=== PATIENT | male | born 1975 ===

== ENCOUNTER 2019-01-13 02:55 | Emergency (ER) | payer OTHER ==
[~2019-01-13] VITALS: Ht 182.9 cm; Wt 145.1 kg
[~2019-01-13 02:55] MED LIST: CIPROFLOXACIN750 MG
[2019-01-13] MEDS ORDERED: TAMS0.4C PO (10:01)
[2019-01-13] MEDS ORDERED: KETO10TA2 PO (10:01)
== END 2019-01-13 10:21 | disposition home or self-care (01) ==
LOC: ER 02:55
DX: R10.12 Left upper quadrant pain (principal)

== ENCOUNTER 2023-06-01 09:30 | Emergency (ER) | payer OTHER ==
[~2023-06-01] VITALS: Ht 182.9 cm; Wt 129.3 kg
[~2023-06-01 09:30] MED LIST changes: +KETO10TA2 PO; +TAMS0.4C PO
[2023-06-01] MEDS ORDERED: HYDROCHLOROTH12.5 MG PO (10:11)
[2023-06-01] MEDS ORDERED: GLUMETZA1000 MG (10:11)
[2023-06-01] MEDS ORDERED: ZESTRIL10 M1 (10:11)
[2023-06-01] MEDS ORDERED: LANTUS SOL100 UNIT/1 (10:11)
[2023-06-01] MEDS ORDERED: GLIPIZIDE XL2.5 MG (10:12)
== END 2023-06-01 17:32 ==
LOC: ER 09:30
DX: N20.0 Calculus of kidney (principal); M54.9 Dorsalgia, unspecified; I11.0 Hypertensive heart disease with heart failure; Z87.442 Personal history of urinary calculi; E11.9 Type 2 diabetes mellitus without complications; Z79.4 Long term (current) use of insulin; G47.39 Other sleep apnea